=== PATIENT | female | born 1990 | race Hispanic/Latino ===

== ENCOUNTER 2020-04-06 16:50 | Inpatient (IN) | payer BC ==
[~2020-04-06] VITALS: Ht 149.9 cm; Wt 94.8 kg
[2020-04-06 18:33] VITALS: BP 106/71
[2020-04-06 19:00] VITALS: BP 110/65
[2020-04-06] MEDS ORDERED: ACETAMINOPHEN 325 MG TAB PO PRN (19:00)
[2020-04-06] MEDS ORDERED: KETOROLAC TROMETHAMINE 30MG/ML IV PRN (19:00)
[2020-04-06] MEDS ORDERED: ONDANSETRON HCL 4 MG/2 ML VIAL IVP PRN (19:00)
[2020-04-06] MEDS ORDERED: MORPHINE SULFATE 2 MG/ML 1ML SYG IVP PRN (19:00)
[2020-04-06 19:29] LABS: BASOPHILS % (AUTO) 0.7 % (0.0-5.0); EOSINOPHILS % (AUTO) 2.2 % (0.0-8.0); HEMATOCRIT 38.4 % (36-48); LYMPHOCYTES % (AUTO) 30.9 % (21.0-51.0); MEAN CORPUSCULAR HEMOGLOBIN 23.4 pg (27.0-33.0); MEAN CORPUSCULAR HGB CONC 32.3 g/dL (32.0-36.0); MEAN CORPUSCULAR VOLUME 72.6 fL (79-99); MONOCYTES % (AUTO) 7.8 % (3.0-13.0); NEUTROPHILS % (AUTO) 58.1 % (40.0-77.0); PLATELET COUNT (AUTO) 252 K/uL (130-400); RED BLOOD CELL COUNT(AUTO) 5.29 MIL/uL (4.00-5.50); RED CELL DISTRIBUTION WIDTH 17.7 % (11.0-15.5); WHITE BLOOD COUNT (AUTO) 7.7 K/uL (4.8-10.8)
[2020-04-06] MEDS ORDERED: DEXTROSE 50%-WATER 50 ML DISP.SYRIN IV PRN (19:30)
[2020-04-06] MEDS ORDERED: BENZONATATE 100 MG CAPSULE PO PRN (19:30)
[2020-04-06] MEDS ORDERED: GLUCAGON 1MG KIT 1 MG ML IM PRN (19:30)
[2020-04-06] MEDS ORDERED: EMPA25TA PO (19:43)
[2020-04-06] MEDS ORDERED: METF-526 PO (19:43)
[2020-04-06] MEDS ORDERED: SIMV-43 PO (19:43)
[2020-04-06] MEDS ORDERED: COMB5OS OD (19:43)
[2020-04-06] MEDS ORDERED: XALA2.5OS OD (19:43)
[2020-04-06] MEDS ORDERED: TELM1TAB31 PO (19:43)
[2020-04-06] MEDS ORDERED: METO-391 PO (19:43)
[2020-04-06 19:49] LABS: CARBON DIOXIDE 28 mmol/L (21-32); CHLORIDE 106 mmol/L (101-111); CREATININE 0.5 mg/dL (0.5-1.5); GLOMERULAR FILTR. RATE CALC 154 mL/min (>60); GLUCOSE,RANDOM 101 mg/dL (70-105); POTASSIUM 3.8 mmol/L (3.5-5.1); SODIUM SERUM 143 mmol/L (136-145); UREA NITROGEN, BLOOD 10 mg/dL (7-18)
[2020-04-06 19:53] LABS: ALANINE AMINOTRANSFERASE 26 U/L (12-78); ASPARTATE AMINOTRANSFERASE 12 U/L (10-37); BILIRUBIN,TOTAL 0.6 mg/dL (0.2-1.0); TOTAL PROTEIN, SERUM 7.7 g/dL (6.0-8.3)
[2020-04-06] MEDS ORDERED: ZOSYN 3.375GM+NS 50ML 50 ML IV ONE (20:36)
[2020-04-06] MEDS: INSULIN HUMULIN R 100 UNIT/ML 3ML SQ SCH (21:00)
[2020-04-06] MEDS: ZOSYN 3.375GM+NS 50ML 50 ML IV SCH (21:59)
[2020-04-06] MEDS: SODIUM CHLORIDE 0.9% 1000ML 1,000 ML IV SCH (22:00)
[2020-04-07] VITALS (25 sets, daily range): BP systolic 98–127; BP diastolic 63–91
[2020-04-07] MEDS: ZOSYN 3.375GM+NS 50ML 50 ML IV SCH ×3 (03:05→20:55)
[2020-04-07 03:35] LABS: HEMATOCRIT 35.2 % (36-48); MEAN CORPUSCULAR HEMOGLOBIN 23.8 pg (27.0-33.0); MEAN CORPUSCULAR HGB CONC 32.7 g/dL (32.0-36.0); MEAN CORPUSCULAR VOLUME 72.7 fL (79-99); RED BLOOD CELL COUNT(AUTO) 4.84 MIL/uL (4.00-5.50); RED CELL DISTRIBUTION WIDTH 17.4 % (11.0-15.5); WHITE BLOOD COUNT (AUTO) 7.4 K/uL (4.8-10.8)
[2020-04-07 04:02] LABS: ALBUMIN 3.6 g/dL (3.5-5.0); BILIRUBIN,TOTAL 0.6 mg/dL (0.2-1.0); CREATININE 0.5 mg/dL (0.5-1.5); POTASSIUM 3.7 mmol/L (3.5-5.1); TOTAL PROTEIN, SERUM 6.9 g/dL (6.0-8.3)
[2020-04-07] MEDS: INSULIN HUMULIN R 100 UNIT/ML 3ML SQ SCH ×2 (04:39→20:56)
[2020-04-07] MEDS: SODIUM CHLORIDE 0.9% 1000ML 1,000 ML IV SCH ×2 (05:32→20:55)
[2020-04-07] MEDS ORDERED: LIDOCAINE PF 2% 5ML ABBOJECT ONE (10:25)
[2020-04-07] MEDS ORDERED: SUCCINYLCHOLINE CHLORIDE 20 MG/ML 10 ML VIAL ONE (10:25)
[2020-04-07] MEDS ORDERED: DEXAMETHASONE SOD PHOSPHATE 10MG/ML 1ML VIAL ONE (10:25)
[2020-04-07] MEDS ORDERED: MIDAZOLAM HCL 1 MG/ML 2ML VIAL ONE (10:26)
[2020-04-07] MEDS ORDERED: PROPOFOL 10 MG/ML 20ML VIAL IV ONE (10:26)
[2020-04-07] MEDS ORDERED: GLYCOPYRROLATE 1 MG/5 ML SYRINGE ONE (10:26)
[2020-04-07] MEDS ORDERED: ONDANSETRON HCL 4 MG/2 ML VIAL ONE (10:26)
[2020-04-07] MEDS ORDERED: FENTANYL CITRATE PF 50 MCG/1 ML 2ML VIAL ONE ×2 (10:27→11:11)
[2020-04-07] MEDS ORDERED: NEOSTIGMINE 5MG/5ML SYR IV ONE (10:27)
[2020-04-07] MEDS ORDERED: ROCURONIUM 10MG/1ML SYR 10 MG/ML ML ONE (10:27)
[2020-04-07] MEDS ORDERED: BUPIVACAINE/PF 0.5% 10ML VIAL ONE (10:45)
--- NOTE | 2020-04-07 12:23 | NUR ---
DCP Patient in surgery unable to assess, called emergency contact on facesheet. Spoke to friend Mookie Stan . As per Mookie pt is a very close friend, independent prior to admission, lives at home w/mother. Denies any equipments/services. Feels safe to go back home, still drives and was working until 2 weeks ago at [facility] [employer], family able to assist with transportation and needs as necessary. DC plan to home once stable. CM to cont to follow up. Addendum: 04/07/20 at 1225 by JENNIFER ACOSTA LVN CM Amended: Links added.
--- NOTE | 2020-04-07 12:25 | NUR ---
SUBRAMANIAN CATHETER DISCONTINUED USING ASEPTIC TECHNIQUE, PER DR. POSADA REQUEST.
[2020-04-07] MEDS ORDERED: MEPERIDINE-PF 25 MG/ML SYG ONE (12:35)
[2020-04-08] VITALS: BP 106/64
[2020-04-08 03:36] VITALS: BP 109/74
[2020-04-08 05:04] LABS: HEMATOCRIT 35.4 % (36-48); MEAN CORPUSCULAR HEMOGLOBIN 23.3 pg (27.0-33.0); MEAN CORPUSCULAR HGB CONC 31.9 g/dL (32.0-36.0); MEAN CORPUSCULAR VOLUME 73.1 fL (79-99); RED BLOOD CELL COUNT(AUTO) 4.84 MIL/uL (4.00-5.50); RED CELL DISTRIBUTION WIDTH 16.9 % (11.0-15.5); WHITE BLOOD COUNT (AUTO) 7.6 K/uL (4.8-10.8)
[2020-04-08] MEDS: ZOSYN 3.375GM+NS 50ML 50 ML IV SCH (05:05)
[2020-04-08] MEDS: SODIUM CHLORIDE 0.9% 1000ML 1,000 ML IV SCH (05:05)
[2020-04-08] MEDS: INSULIN HUMULIN R 100 UNIT/ML 3ML SQ SCH ×2 (05:06→11:30)
[2020-04-08 05:41] LABS: CREATININE 0.4 mg/dL (0.5-1.5)
[2020-04-08 07:30] VITALS: BP 106/72
[2020-04-08 10:50] VITALS: BP 99/71
== END 2020-04-08 16:23 | disposition home or self-care (01) | DRG 343 ==
LOC: 3AH 18:12
PROVIDERS: ADMIT Internal Medicine; ATTEND Internal Medicine
PROC: 0DTJ4ZZ Resection of Appendix, Percutaneous Endoscopic Approach (ICD-10-PCS; principal; 2020-04-07 11:10)
DX: K35.80 Unspecified acute appendicitis (principal); E11.9 Type 2 diabetes mellitus without complications; I10 Essential (primary) hypertension; H40.9 Unspecified glaucoma; Z20.828 Contact with and (suspected) exposure to other viral communicable diseases; Z86.19 Personal history of other infectious and parasitic diseases
CPT/HCPCS: 36415; 80048; 80053; 81025; 82948; 84145; 85025; 85027; G0378; J0330; J1100; J2001; J2175; J2250; J2405; J2543; J2704; J2710; J3010; J3490; J7030